=== PATIENT | female | born 1960 | race Caucasian/White ===

== ENCOUNTER 2023-01-27 15:07 | Emergency (ER) | payer OTHER, SELFPAY ==
[2023-01-27 15:09] VITALS: BP 183/101; PULSE 87; RESP 14; TEMP 36.1; O2SAT 96
--- NOTE | 2023-01-27 15:33 | EKG12_ITS ---
Test Reason : CHEST PRESSURE Blood Pressure : / mmHG Vent. Rate : 068 BPM Atrial Rate : 068 BPM P-R Int : 126 ms QRS Dur : 084 ms QT Int : 398 ms P-R-T Axes : 052 055 056 degrees QTc Int : 423 ms Normal sinus rhythm Normal ECG Confirmed by SAMY MACK, LUISA ([id number]), index editor ENZO STRICKLAND ([id number]) on 01/29/2023 10:12:46 AM Referred By: MELANIE Confirmed By:LUISA PABLO MD
--- NOTE | 2023-01-27 15:33 | EX.ED.DYSGE1 ---
HPI History of Present Illness Chief Complaint: Hypertension Narrative Narrative: 62-year-old female presenting with some chest pressure which began around noon. She states she had a similar pressure on Friday which is 4 days ago. She had it while she was painting her barn and she just thought it was the heat. Today she was at work and just before lunch when she noted the chest pressure. She had not eaten anything. The pressure is gone now. She states has had some lightheadedness symptoms but does not feel like she is going to faint. She states she was formerly a smoker and quit secondary to a spontaneous pneumothorax distantly. She states this does not feel like the same kind of pain. She does not specifically have a cardiac history but does have hypertension and notes her blood pressure is elevated. She states no metoprolol, verapamil, hydrochlorothiazide with no medication changes. She is a patient of Dr. Norwood [facility] Medical History (Updated 01/27/23 @ 15:38 by Shayna Gao) Hypertension Home Medications hydrochlorothiazide 25 mg tablet 25 mg PO DAILY hyptertension 01/27/23 [History Last Taken 01/27/23] metoprolol succinate 25 mg tablet,extended release 24 hr 25 mg PO DAILY hypertension 01/27/23 [History Last Taken 01/27/23] verapamil 240 mg tablet,extended release 240 mg PO DAILY hypertension 01/27/23 [History Last Taken 01/27/23] zolmitriptan 5 mg tablet 5 mg PO DAILY PRN PRN migraine headache 01/27/23 [History Last Taken Unknown] Allergy/AdvReac Type Severity Reaction Status Date / Time Seasonal Allergies: Uncoded Allergy Other Verified 01/27/23 15:09 Social History Smoking Status: Former smoker EXAM Physical Exam Const Vital Signs: 01/27/23 15:09 01/27/23 15:37 01/27/23 15:37 Temperature 97 F L Temperature Source Temporal Pulse Rate 87 80 Respiratory Rate 14 16 Respiratory Effort Respiratory Pattern Blood Pressure 183/101 H 184/91 H Blood Pressure Mean 128 122 Pulse Ox 96 100 100 Oxygen Delivery Method Room Air Room Air Room Air 01/27/23 15:37 01/27/23 17:18 01/27/23 18:31 Temperature Temperature Source Pulse Rate 82 79 Respiratory Rate 16 15 Respiratory Effort Normal Respiratory Pattern Normal Blood Pressure 180/86 H 173/87 H Blood Pressure Mean 117 115 Pulse Ox 99 99 Oxygen Delivery Method Room Air Room Air Positive well nourished and well developed General Appearance ED: well developed; Negative for pallor HEENT Reports moist mucous membranes Eyes PERRL Chest Wall inspection of chest normal and palpation of chest normal Resp normal respiratory effort and clear to auscultation bilaterally Auscultation: Negative for rales, rhonchi or wheezes Cardio regular rate and regular rhythm GI normal to inspection, nondistended, normoactive bowel sounds Neuro oriented x3 and CN's II-XII intact bilaterally Sensorium / Orientation: alert Psych mental status grossly normal Skin no rashes or lesions noted and no wounds General Skin Exam: Negative for jaundice or pallor MDM MDM MDM Narrative Medical decision making narrative: 62-year-old female presenting with chest pressure which has had since noon. Differential includes but is not limited to ACS, PE, aortic dissection, pneumonia, pneumothorax, muscle strain, costochondritis. Patient is PERC negative so PE is less likely. Patient not having a ripping and tearing sensation does not radiate to her back aortic dissection is unlikely as well. She does have history of pneumothorax which was spontaneous although she has equal bilateral breath sounds and symmetric chest wall rise. CMP to assess white blood cell count, hemoglobin, platelets. BMP to assess renal function, electrolytes. Troponin and EKG to assess for anemia and dysrhythmia. Chest x-ray to rule out pneumonia pneumothorax. Patient states he is not currently having any pain. Her blood pressure is elevated but is trending downward. We will watch this. Blood pressure has come down to 173/87. CBC and BMP were unremarkable. High-sensitivity troponin less than 3 initially and 3 2 hours. EKG on my interpretation is normal sinus rhythm without evidence of ischemia or ectopy. Chest x-ray my interpretation shows no acute process. Discussed with patient to continue her blood pressure medications. She is to keep a blood pressure diary. She was to watch caffeine and salt. Patient given return precautions. She will follow-up with her PCP. Impression: 1. Chest pain 2. hypertension Lab Data Labs: Laboratory Results - last 24 hr 01/27/23 01/27/23 15:40 17:55 WBC 6.7 RBC 4.66 Hgb 14.2 Hct 42.9 MCV 92.1 MCH 30.5 MCHC 33.1 RDW Std Deviation 42.3 RDW Coeff of Juan M 12.5 Plt Count 247 MPV 10.8 Immature Gran % (Auto) 0.400 Neut % (Auto) 66.9 Lymph % (Auto) 22.8 Mcclain % (Auto) 7.2 Eos % (Auto) 1.8 Baso % (Auto) 0.9 Absolute Neuts (auto) 4.5 Absolute Lymphs (auto) 1.53 Nucleated RBC % 0 Sodium 140 Potassium 3.5 Chloride 108 H Carbon Dioxide 26.0 Anion Gap 6 BUN 11 Creatinine 0.99 Estim Creat Clear Calc 51.53 Est GFR (MDRD) Af Amer 73 Est GFR (MDRD) Non-Af 61 BUN/Creatinine Ratio 11.2 Glucose 101 Calcium 9.5 Troponin I High Sens < 3 L 3 Radiography Diagnostic Testing: Clinical Impression(s) from Imaging Studies Chest X-Ray 01/27/23 15:44 IMPRESSION: No evidence of active intrathoracic disease. Electronically Signed: Sana Gardner MD at 16:52 EDT , Discharge Plan Triage Chief Complaint: Hypertension Other Complaint: Dizziness ED Provider: Andrew Aguilera Dx/Rx/DC Orders Instructions: ED Chest Pain, Noncardiac, ED Hypertension, Established Prescriptions: No Action zolmitriptan 5 mg tablet 5 mg PO DAILY PRN PRN (Reason: migraine headache) Patient Comments: take 1 tablet by mouth once daily if needed for migraines as directed verapamil 240 mg tablet extended release 240 mg PO DAILY hydrochlorothiazide 25 mg tablet 25 mg PO DAILY metoprolol succinate 25 mg tablet extended release 24 hr 25 mg PO DAILY Primary Care Provider: Care Physician,No Primary Referrals: Michi Espinosa MD [Med Staff - Personal Lines Insurance Agent] - As soon as possible Care Physician,No Primary [Primary Care Provider] - Disposition Disposition: Home, Self Care
--- NOTE | 2023-01-27 15:36 | NURSING ---
NO OLD EKGS
[2023-01-27 15:37] VITALS: BP 184/91; PULSE 80; RESP 16; O2SAT 100
--- NOTE | 2023-01-27 15:44 | RAD_ITS ---
INDICATION: chest pain EXAMINATION/TECHNIQUE: X-RAY - XR Chest 1 View AP portable. 3:44 PM COMPARISON: FINDINGS: LINES/DEVICES: None. LUNGS: No consolidation. No pneumothorax. MEDIASTINUM: Aorta is atherosclerotic and tortuous. CARDIAC SILHOUETTE: Not enlarged. BONES AND SOFT TISSUES: No acute abnormalities. RAD/Chest 1 View (Portable) IMPRESSION: No evidence of active intrathoracic disease. Electronically Signed: Sana Gardner MD at 16:52 EDT ,
[2023-01-27 15:56] LABS: Absolute Lymphocyte Count 1.53 X10^3/uL (0.83-4.51); Absolute Neutrophil Count 4.5 X10^3/uL (2.0-7.7); Basophil# 0.06 X10^3/uL; Basophil% 0.9 % (0-1); Eosinophil# 0.12 X10^3/uL; Eosinophils% 1.8 % (0-5); Hematocrit 42.9 % (37-47); Hemoglobin 14.2 g/dL (12.0-15.0); Lymphocyte # 1.53 X10^3/ul (0.83-4.51); Lymphocyte % 22.8 % (19-41); Mean Corp Hgb Conc 33.1 g/dL (32-36); Mean Corpuscular Hgb 30.5 pg (27.0-32.0); Mean Corpuscular Volume 92.1 fL (81-99); Mean Platelet Vol. 10.8 fl (6.2-12.0); Monocyte# 0.48 X10^3/uL; Monocyte% 7.2 % (0-10); NRBC Flagged by Analyzer 0 % (0-5); Neutrophil # 4.48 X10^3/uL (2.7-7.7); Neutrophil % 66.9 % (47-70); Platelet Count 247 K/mm3 (150-450); RBC Distribution Width CV 12.5 % (11.6-14.6); RBC Distribution Width SD 42.3 fl (35.1-43.9); Red Blood Count 4.66 M/mm3 (4.2-5.4); White Blood Count 6.7 K/mm3 (4.4-11.0)
[2023-01-27 16:06] VITALS: BMI 27.6
[2023-01-27] MEDS: Aspirin 81 MG TAB.CHEW 324 MG PO (16:07)
[2023-01-27 16:27] LABS: Anion Gap 6 (5-15); BUN 11 mg/dL (7-18); BUN/Creat Ratio 11.2 RATIO (10-20); Calcium,Total 9.5 mg/dL (8.5-10.1); Chloride 108 mmol/L (98-107); Creatinine, Serum 0.99 mg/dL (0.55-1.02); EST Glomerular Filtration Rate 61 mL/min (>60); Est Glom Filt Rate - Afr Amer 73 mL/min (>60); Estimated Creatinine Clearance 51.53 ml/min; Glucose 101 mg/dL (74-106); Potassium 3.5 mmol/L (3.5-5.1); Sodium Level 140 mmol/L (136-145); Troponin-I HS (w/2H Reflex) < 3 pg/mL (3.0-54.0)
[2023-01-27 17:18] VITALS: BP 180/86; PULSE 82; RESP 16; O2SAT 99
[2023-01-27 17:50] LABS: Reflex Troponin-HS? (from REC) Y
[2023-01-27 18:31] VITALS: BP 173/87; PULSE 79; RESP 15; O2SAT 99
[2023-01-27 18:31] LABS: Troponin-I HS 3 pg/mL (3.0-54.0)
[2023-01-27 19:11] VITALS: BP 167/73; PULSE 74; RESP 16; O2SAT 98
== END 2023-01-27 19:13 | disposition home or self-care (01) ==
PROVIDERS: Emergency Provider Student in an Organized Health Care Education/Training Program; Visit Provider Student in an Organized Health Care Education/Training Program
DX: R07.9 Chest pain, unspecified (principal); I10 Essential (primary) hypertension; Z79.899 Other long term (current) drug therapy; Z87.891 Personal history of nicotine dependence
CPT/HCPCS: 71045; 80048; 84484; 85025; 93005; 99284; A4216

== ENCOUNTER → 2023-02-12 | Outpatient (CLI) | payer OTHER, SELFPAY ==
--- NOTE | 2023-02-12 06:06 | ECHOD_ITS ---
Reason For Study: CHEST PAIN Procedure This was a 2D Doppler, Color Flow transthoracic echocardiogram. Exam performed in department. Left Ventricle Normal LV size. Left ventricular systolic function is normal. The estimated ejection fraction is 65 %. Normal diastology for age. No regional wall motion abnormalities noted. Right Ventricle Normal RV size. Normal systolic function. Atria The left and right atria are normal. Bubble contrast study negative for right to left interatrial shunt. Mitral Valve The mitral valve is structurally normal. No prolapse or stenosis seen. Trivial mitral valve insufficiency. Tricuspid Valve Normal tricuspid valve. Trivial tricuspid valve insufficiency. Unable to estimate RV systolic pressure due to insufficient tricuspid regurgitant envelope. Aortic Valve Trisinus/trileaflet aortic valve. There is no aortic stenosis. No aortic valve insufficiency. Pulmonic Valve Normal pulmonic valve. Trivial pulmonic valve insufficiency. Great Vessels Normal aortic root. Pericardium/Pleural No pericardial effusion. Medication Performed a rapid injection of agitated mix of 9 cc saline and 1cc air to assess for atrial septal defect. MMode/2D Measurements & Calculations LVIDd: 4.7 cm IVSd: 0.89 cm Ao root diam: 3.5 cm LVIDs: 2.3 cm LVPWd: 0.75 cm RVDd: 3.4 cm FS: 51.2 % LAV(MOD-bp): 45.8 ml LVAd ap4: 22.7 cm2 SV(MOD-sp4): 38.9 ml LAV(MOD-bp) Indexed: 26.3 ml/m2 LVLd ap4: 7.7 cm LAV(MOD-sp2): 49.4 ml EDV(MOD-sp4): 55.3 ml LAV(MOD-sp4): 37.1 ml EDV(sp4-el): 57.1 ml LVAs ap4: 10.6 cm2 LVLs ap4: 6.0 cm ESV(MOD-sp4): 16.3 ml ESV(sp4-el): 15.8 ml EF(MOD-sp4): 70.5 % EF(sp4-el): 72.4 % SV(sp4-el): 41.4 ml LA A4 area: 14.8 cm2 LA dimension(2D): 3.8 cm RA A4 area: 13.8 cm2 TAPSE: 2.3 cm Time Measurements MV dec time: 0.27 sec Doppler Measurements & Calculations MV E max shen: 53.9 cm/sec Lat Peak E' Shen: 11.8 cm/sec Med Peak E' Shen: 10.2 cm/sec MV A max shen: 75.8 cm/sec E/E' lat: 4.6 E/E' med: 5.3 MV E/A: 0.71 Ao V2 max: 145.9 cm/sec LV V1 max: 121.6 cm/sec PA V2 max: 79.2 cm/sec Ao max P.5 mmHg LV V1 max P.9 mmHg ECHO/Echo Complete Interpretation Summary The estimated ejection fraction is 65 %. Bubble contrast study negative for right to left interatrial shunt. Ordering Physician: Bear Mauricio Referring Physician: Bear Mauricio Performed By: Danuta Castanon RDCS and Student
--- NOTE | 2023-02-12 12:38 | STRESSREP ---
Stress Test Report Date: 02/12/2023 Procedure: Exercise tolerance test/imaging study Indications: Chest pain Consent: Per the patient Procedure: The patient exercised on a Avelino protocol for 7 minutes and 30 seconds achieving a peak heart rate of 142 bpm (89% predicted maximal heart rate) with a peak blood pressure 178/70 mmHg and a peak MET capacity of 10.1 METs. The baseline ECG demonstrated normal sinus rhythm. The peak exercise ECG demonstrated no ischemic changes however horizontal ST depressions noted in recovery. There were no cardiac dysrhythmias pretest, during exercise, or recovery. The functional capacity was considered average. There was no complaint of chest discomfort during exercise or recovery. The examination was discontinued secondary to target heart rate being achieved. The patient was injected with 11.4 mCi of technetium 99m Cardiolite and subsequently rest SPECT Cardiolite nuclear imaging was obtained in the horizontal long, vertical long, and short axis views. Post-exercise, the patient was injected with 33.7 mCi of technetium 99m Cardiolite and subsequently stress SPECT Cardiolite nuclear imaging was obtained in the horizontal long, vertical long, and short axis views. A gated Cardiolite study at peak stress was obtained. Rest and stress SPECT Cardiolite nuclear imaging status post realignment, normalization, and attenuation correction, demonstrates the appearance of relative uniform tracer uptake and myocardial perfusion appearing within normal limits. There is end systolic thickening and brightening. The gated Cardiolite study demonstrates myocardial thickening and inward wall motion. The reported LVEF is 79%. Impression: 1. Technically adequate (percent predicted maximal heart rate greater than 85%) exercise tolerance test. 2. Peak exercise ECG with no ischemic changes however horizontal ST depressions noted during recovery. 3. There were no cardiac dysrhythmias pretest, during exercise, or recovery 4. Rest and stress SPECT Cardiolite nuclear imaging demonstrate relative uniform tracer uptake and myocardial perfusion appearing within normal limits. 5. The gated Cardiolite study reports an LVEF of 79%. This note was generated with Couplewiseation software. It may contain incorrect words, spelling, and punctuation that were not noted in checking the note before signing.
== END | disposition home or self-care (01) ==
LOC: CVS 06:03
PROVIDERS: PCP Internal Medicine; Referring Provider Internal Medicine Cardiovascular Disease; Visit Provider Internal Medicine Cardiovascular Disease
DX: R07.9 Chest pain, unspecified (principal); I10 Essential (primary) hypertension; R00.2 Palpitations
CPT/HCPCS: 78452; 93017; 93306; A9500; A4216